=== PATIENT | female | born 1980 | race Caucasian/White ===

== ENCOUNTER 2018-07-24 16:28 | Emergency (ER) | payer SELFPAY ==
[2018-07-24 17:09] LABS: BASOPHILS # (AUTO) 0.1 10^3/uL (0.0-0.1); BASOPHILS % (AUTO) 0.9 %; EOSINOPHILS # (AUTO) 0.1 10^3/uL (0.0-0.7); EOSINOPHILS % (AUTO) 0.6 %; HGB - HEMOGLOBIN 14.3 g/dL (12.0-16.0); LYMPHOCYTES # (AUTO) 2.6 10^3/uL (1.5-3.5); LYMPHOCYTES % (AUTO) 23.7 %; MEAN CORPUSCULAR HEMOGLOBIN 32.5 pg (27.0-31.0); MEAN CORPUSCULAR HGB CONC 35.5 g/dL (32.0-36.0); MEAN CORPUSCULAR VOLUME 91.4 fL (81.0-99.0); MEAN PLATELET VOLUME 7.6 fL (7.9-10.8); MONOCYTES # (AUTO) 0.7 10^3/uL (0.0-1.0); MONOCYTES % (AUTO) 6.4 %; NEUTROPHILS # (AUTO) 7.4 10^3/uL (1.5-6.6); NEUTROPHILS % (AUTO) 68.4 %; PLT - PLATELET COUNT 360 10^3/uL (130-450); RED BLOOD COUNT 4.42 10^6/uL (4.20-5.40); RED CELL DISTRIBUTION WIDTH 12.5 % (12.0-15.0); WHITE BLOOD COUNT 10.8 x10^3/uL (4.8-10.8)
[2018-07-24 17:21] LABS: BILIRUBIN,URINE NEGATIVE (NEGATIVE); GLUCOSE, URINE (UA) NEGATIVE (NEGATIVE); KETONES,URINE (UA) NEGATIVE (NEGATIVE); LEUKOCYTE ESTERASE, URINE SMALL (NEGATIVE); NITRITE,URINE NEGATIVE (NEGATIVE); OCCULT BLOOD,URINE MODERATE (NEGATIVE); PROTEIN,URINE NEGATIVE (NEGATIVE); UROBILINOGEN,URINE 0.2 (NORMAL) E.U./dL (NORMAL)
[2018-07-24 17:24] LABS: CLARITY,URINE CLEAR (CLEAR); HCG UR QUAL NEGATIVE
--- NOTE | 2018-07-24 17:24 | ED Physician Documentation ---
PD HPI ABD PAIN - Stated complaint Stated Complaint: FEMALE - Chief complaint Chief Complaint: Abd Pain - History obtained from History obtained from: Patient - History of Present Illness Timing - onset: How many weeks ago (2) Timing - duration: Weeks (2) Timing - details: Gradual onset, Still present, Waxing and waning Quality: Cramping, Aching, Pain. No: Sharp Location: RLQ (just the past few days), Suprapubic, LLQ (initially) Improved by: No: Eating Worsened by: Position, Palpation. No: Eating Associated symptoms: Nausea, Dysuria, Vaginal dc (mild). No: Fever, Vomiting, Diarrhea, Hematuria Similar symptoms before: Diagnosis (uti) Recently seen: Not recently seen Review of Systems Constitutional: denies: Fever, Chills, Myalgias Nose: denies: Rhinorrhea / runny nose, Congestion Throat: denies: Sore throat Respiratory: denies: Cough GI: reports: Abdominal Pain, Nausea. denies: Abdominal Swelling, Vomiting, Diarrhea : reports: Dysuria, Frequency, Discharge (mild). denies: Irregular menses Skin: denies: Rash, Lesions PD PAST MEDICAL HISTORY - Past Medical History : None - Present Medications Home Medications: Ambulatory Orders Medication Instructions Recorded Confirmed Alprazolam [Xanax] 0.5 mg PO DAILY 07/24/18 07/24/18 Gabapentin 300 mg PO BID 07/24/18 07/24/18 Metronidazole [Flagyl] 500 mg PO BID #14 tablet 07/24/18 Naproxen 375 mg PO BID #20 tablet 07/24/18 Oxycodone HCl/Acetaminophen 1 each PO Q6H PRN #12 tablet 07/24/18 [Percocet 5-325 mg Tablet] QUEtiapine [SEROquel] 25 mg PO QPM 07/24/18 07/24/18 Venlafaxine [Effexor] 37.5 mg PO BID 07/24/18 07/24/18 - Allergies Allergies/Adverse Reactions: Allergies Allergy/AdvReac Type Severity Reaction Status Date / Time Penicillins Allergy Unknown Verified 07/24/18 16:48 PD ED PE NORMAL - Vitals Vital signs reviewed: Yes - General General: Alert and oriented X 3, Well developed/nourished, Other (appears in pain) - HEENT HEENT: Pharynx benign - Neck Neck: Supple, no meningeal sign, No adenopathy - Cardiac Cardiac: RRR, No murmur - Respiratory Respiratory: Clear bilaterally - Abdomen Abdomen: Normal bowel sounds, Soft, Non distended, No organomegaly, Other ( tender suprapubic and llq area. 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 Vault with moderate white discharge and cervical tenderness. ) - Rectal Rectal: Deferred Results - Vitals Vitals: Vital Signs - 24 hr 07/24/18 07/24/18 07/24/18 16:45 18:30 19:32 Temperature 37.0 C Heart Rate 99 76 66 Respiratory 16 15 16 Rate Blood Pressure 109/77 103/67 116/79 O2 Saturation 99 98 97 07/24/18 20:02 Temperature Heart Rate 68 Respiratory 16 Rate Blood Pressure 116/79 O2 Saturation 97 Oxygen O2 Source Room air - Labs Labs: Microbiology 07/24/18 18:15 Wet Prep - Final Genital - Vaginal Laboratory Tests 07/24/18 07/24/18 07/24/18 17:03 17:03 17:10 WBC 10.8 RBC 4.42 Hgb 14.3 Hct 40.4 MCV 91.4 MCH 32.5 H MCHC 35.5 RDW 12.5 Plt Count 360 MPV 7.6 L Neut # (Auto) 7.4 H Lymph # (Auto) 2.6 [place] # (Auto) 0.7 Eos # (Auto) 0.1 Baso # (Auto) 0.1 Absolute Nucleated RBC 0.00 Nucleated RBC % 0.0 Sodium 139 Potassium 3.6 Chloride 101 Carbon Dioxide 29 Anion Gap 9.0 BUN 8 Creatinine 0.5 Estimated GFR (MDRD) 140 Glucose 125 H Calcium 9.0 Total Bilirubin 0.2 AST 19 ALT 12 Alkaline Phosphatase 53 Total Protein 7.8 Albumin 4.4 Globulin 3.4 Albumin/Globulin Ratio 1.3 Lipase 27 Urine Color YELLOW Urine Clarity CLEAR Urine pH 6.0 Ur Specific [place] <=1.005 Urine Protein NEGATIVE Urine Glucose (UA) NEGATIVE Urine Ketones NEGATIVE Urine Occult Blood MODERATE H Urine Nitrite NEGATIVE Urine Bilirubin NEGATIVE Urine Urobilinogen 0.2 (NORMAL) Ur Leukocyte Esterase SMALL H Urine RBC 0-5 Urine WBC 11-25 H Urine WBC Clumps PRESENT Ur Squamous Epith Cells MOD Squamous H Urine Bacteria Moderate H Urine Mucus Few Strands Ur Microscopic Review INDICATED Urine Culture Comments NOT INDICATED Urine HCG, Qual NEGATIVE - Rads (name of study) pelvic U/S Radiology: Prelim report reviewed (small amount free fluid, otherwise normal) PD MEDICAL DECISION MAKING - ED course Complexity details: reviewed old records, re-evaluated patient (pain improved but not gone. Hurting a lot for BV. No other apparent significant cause. Visiting from out of town, so will follow up with PMD in [facility]. ), considered differential (symptoms sound like uti/pyelo but UA not looking convincing. Consider vaginitis, and did pelvic, which did look like cause of symptoms. ), d/w patient - Sepsis Event Vital Signs: Vital Signs - 24 hr 07/24/18 07/24/18 07/24/18 16:45 18:30 19:32 Temperature 37.0 C Heart Rate 99 76 66 Respiratory 16 15 16 Rate Blood Pressure 109/77 103/67 116/79 O2 Saturation 99 98 97 07/24/18 20:02 Temperature Heart Rate 68 Respiratory 16 Rate Blood Pressure 116/79 O2 Saturation 97 Oxygen O2 Source Room air Departure - Departure Disposition: 01 Home, Self Care Clinical Impression: Bacterial vaginitis Abdominal pain Qualifiers: Abdominal location: lower abdomen, unspecified Qualified Code(s): R10.30 - Lower abdominal pain, unspecified Condition: Stable Record reviewed to determine appropriate education?: Yes Instructions: ED Vaginosis Bacterial Follow-Up: LYNDSEY GALEAS [Primary Care Provider] - Prescriptions: Metronidazole [Flagyl] 500 mg PO BID #14 tablet Naproxen 375 mg PO BID #20 tablet Oxycodone HCl/Acetaminophen [Percocet 5-325 mg Tablet] 1 each PO Q6H PRN #12 tablet PRN Reason: Pain Comments: You have signs of a bacterial vaginitis and I think this is given you your symptoms of the pelvic pain and dysuria. These are common symptoms with it. We will treated with naproxen anti-inflammatory twice daily for 7-10 days and also metronidazole antibiotic twice daily. Ondansetron if needed for nausea. Add Tylenol or Percocet if needed for pain. Follow-up with your primary care if not improving over the next several days to week. Discharge Date/Time: 07/24/18 20:20
[2018-07-24 17:42] LABS: BACTERIA,URINE Moderate /HPF (None Seen); MUCUS,URINE Few Strands; RBC,URINE 0-5 /HPF (0-5); SQUAMOUS EPITHELIAL CELL,UR MOD Squamous (<= Few); WBC CLUMPS,URINE PRESENT
[2018-07-24 17:46] LABS: ALBUMIN 4.4 g/dL (3.2-5.5); ALBUMIN/GLOBULIN RATIO 1.3 (1.0-2.2); BILIRUBIN,TOTAL 0.2 mg/dL (0.2-1.0); CREATININE 0.5 mg/dL (0.4-1.0); TOTAL PROTEIN 7.8 g/dL (6.7-8.2)
[2018-07-24] MEDS ORDERED: ONDANSETRON 4 MG/2 ML VIAL IVP STA (17:47)
[2018-07-24] MEDS ORDERED: MORPHINE 10 MG/ML VIAL IVP STA ×2 (17:47→18:18)
[2018-07-24] MEDS ORDERED: KETOROLAC 15 MG/ML VIAL IVP STA (17:47)
[2018-07-24] MEDS ORDERED: SODIUM CHLORIDE 0.9% 1,000 ML IV ONE (17:48)
[2018-07-24] MEDS ORDERED: metroNIDAZOLE 250 MG TABLET PO STA (18:45)
[2018-07-24] MEDS ORDERED: HYDROmorphone 2 MG/ML VIAL IVP STA (19:22)
[2018-07-24 19:34] VITALS: BP 116/79
--- NOTE | 2018-07-24 19:42 | Ultrasound Report ---
Reason: lower abd pain for few days Procedure Date: 07/24/2018 Accession Number: [id number] / [id number] Procedure: US - Pelvic w/Transvag+Doppler Ltd CPT Code: FULL RESULT: EXAM: PELVIC ULTRASOUND EXAM DATE: 07/24/2018 07:10 PM. CLINICAL HISTORY: Lower abdomen pain for few days. COMPARISON: None. TECHNIQUE: Realtime transabdominal pelvic scan performed to identify the uterus and adnexa and as an overview of other pelvic structures, followed by transvaginal scan to provide greater detail of the uterus and adnexa, with static image documentation. FINDINGS: Uterus: 7.8 x 3.8 x 5.3 cm, volume 81.7 cc. Anteverted position. Normal overall size and echotexture. Masses: None. Endometrium: 5 mm. Normal. Cervix: Unremarkable. Right Ovary: 3.2 x 2.2 x 2.4 cm, volume 9 cc. Normal echotexture and blood flow. Dominant follicle measures 1.5 x 0.9 x 1.6 cm. Left Ovary: 2.5 x 2.4 x 2.4 cm, volume 7.1 cc. Normal echotexture and blood flow. Dominant follicle measures 1.1 x 1.2 x 1.4 cm. Free Fluid: Small amount. Other: None. IMPRESSION: Small amount of free fluid noted, otherwise unremarkable pelvic ultrasound. [facility]
[2018-07-24] MEDS ORDERED: oxyCODONE/ACET 5/325 Prepack 4 PO STA (20:07)
== END 2018-07-24 20:20 | disposition home or self-care (01) ==
LOC: ED 16:28
DX: N76.0 Acute vaginitis (principal); B96.89 Other specified bacterial agents as the cause of diseases classified elsewhere; R10.30 Lower abdominal pain, unspecified
CPT/HCPCS: 36415; 76830; 76856; 80053; 81001; 81025; 83690; 85025; 87210; 87491; 87591; 93976; 96361; 96374; 96375; 99284; A9270; J1170; 81003; 87086